=== PATIENT | female | born 1945 | race Caucasian/White ===

== ENCOUNTER → 2017-08-31 10:26 | Outpatient (CLI) | payer MEDICARE, SELFPAY ==
[2017-08-31 11:42] LABS: Add Manual Diff / Slide Review NO; Eosinophils Percent Auto 1.7 % (2-4); Hematocrit 41.6 % (36-46); Lymphocytes Percent Auto 17.4 % (25-40); Mean Corpuscular HGB Conc 33.6 % (30-36); Mean Corpuscular Volume 83.1 fL (80-100); Monocytes Percent Auto 9.6 % (3-14); Neutrophils Absolute Auto 4700 /uL (3000-5900); Neutrophils Percent Auto 70.3 % (50-75); Platelet Count 301 X10^3/uL (150-400); Red Cell Distribution Width 13.8 % (11.6-14.8); White Blood Cell Count 6.7 X10^3/uL (4.5-11.0)
[2017-08-31 12:54] LABS: Alanine Aminotransferase 31 IU/L (9-52); Albumin 4.5 g/dL (3.5-5.0); Albumin Globulin Ratio 1.5 (1.0-2.8); Alkaline Phosphatase 68 U/L (38-126); Aspartate Aminotransferase 27 IU/L (14-36); BUN Creatinine Ratio 11.1 (6-22); Bilirubin Total 0.6 mg/dL (0.2-1.3); Blood Urea Nitrogen 10 mg/dL (7-17); Calcium 9.7 mg/dL (8.4-10.2); Carbon Dioxide 28 mmol/L (22-32); Chloride 104 mmol/L (98-107); Cholesterol 231 mg/dL (140-199); Estimated Glomerular Filt Rate > 60.0 mL/min (>60); Glucose 102 mg/dL (80-110); HDL Cholesterol 97 mg/dL (40-60); HEMOLYSIS < 15 (0-50); LDL Cholesterol Calculated 116 mg/dL (<100); Potassium 4.7 mmol/L (3.4-5.1); Sodium 144 mmol/L (137-145); Total Protein 7.5 g/dL (6.3-8.2); Triglycerides 91 mg/dL (35-150)
== END ==
PROVIDERS: PCP Family Medicine; Visit Provider Family Medicine
DX: R07.9 Chest pain, unspecified (principal)
CPT/HCPCS: 36415; 80053; 80061; 85025

== ENCOUNTER → 2017-09-16 08:03 | Outpatient (CLI) | payer MEDICARE, SELFPAY ==
--- NOTE | 2017-09-16 09:26 | P.PCN_ITS ---
Cardiac Stress Test Report Referral & Results Date Patient Seen: 09/16/17 Time Patient Seen: 09:24 Requesting provider: Ofelia Henley Indication: Chest pain Rest ECG: Unremarkable Procedure Note: Today following both written and verbal informed consent the patient was exercised according to a standard Charan protocol patient went for a total of 6 min 7 sec achieving a maximum heart rate of 147 maximum systolic blood pressure of 206. This is approximately 7.0 METS. Exercise was terminated at this point because of wheezing and dyspnea. Patient was also given Cardiolite through a previously started Hep-Lock IV by the non licensed nuclear plant operator approximately 1 minute prior to the cessation of exercise. Patient had normal heart rate blood pressure response to exercise No dysrhythmias were identified No ST segment changes were noted Patient did experience the sudden onset of severe mid epigastric to perhaps posterior pain that was not pleuritic in nature while in recovery. There were absolutely no ST segment changes and no dysrhythmias. This resolved in less than 30 sec. Uncertain as to etiology Functional aerobic impairment rated 0 on the active scale or would be better than average on the sedentary scale Impression: No evidence of ischemia. Perfusion imaging be reported separately. Please note: Actual ECG tracings can be found in the PACS system.
--- NOTE | 2017-09-19 15:01 | DI.NM.S_ITS ---
DATE OF SERVICE: 09/16/2017 PROCEDURE: Exercise perfusion study. INDICATIONS: Chest pain. RADIOPHARMACEUTICAL: 25.8 mCi technetium-99m Myoview IV was injected at stress and 25.8 mCi technetium-99m Myoview IV was injected at rest. CARDIAC STRESS: Patient underwent exercise perfusion study under the supervision of an attending staff. Patient walked on Charan protocol for 6 minutes 07 seconds and achieved 98% of target heart rate. There was hypertensive blood pressure response. Resting blood pressure 124/70. Peak blood pressure 206/90. The patient had dyspnea and some wheezing. Baseline EKG revealed normal sinus rhythm with some repolarization changes. During stress, there was some non- stressing up-sloping ST depression without any convincing ischemic changes. There were no significant arrhythmias. RAW DATA: There appears to be adequate myocardial uptake. GATED STUDY: Stress LV ejection fraction 95% without any obvious wall motion abnormalities. Resting end-diastolic volume is 61 mL. No transient ischemic dilatation. TID ratio is 0.72, which is within normal limits. Lung/heart ratio is 0.35, which is within normal limits. MYOCARDIAL PERFUSION SCAN: There is normal myocardial perfusion. CONCLUSION: This is a normal myocardial perfusion study. Patient achieved 7 METS of workload. Functional aerobic impairment 0%. Overall, this is a low- risk myocardial perfusion scan. Chelita Ramsey - JENNIFER/jae/ doc#: [id number]/job#: [id number] dd: 09/19/2017 12:33:00 dt: 09/19/2017 14:47:00 DICTATING /COPIES TO: Jessika Leung MD COPIES MNE: LUIS
== END ==
PROVIDERS: PCP Family Medicine; Visit Provider Family Medicine
DX: R07.9 Chest pain, unspecified (principal)
CPT/HCPCS: 78452; 93016; 93017; 93018; A9502

== ENCOUNTER → 2018-09-12 08:39 | Outpatient (CLI) | payer MEDICARE, SELFPAY ==
[2018-09-12 09:07] LABS: Add Manual Diff / Slide Review NO; Basophils Absolute Auto 100 /uL (0-100); Eosinophils Absolute Auto 100 /uL (0-450); Eosinophils Percent Auto 2.1 % (2-4); Hemoglobin 13.3 g/dL (12.0-16.0); Lymphocytes Absolute Auto 1400 /uL (1100-4500); Lymphocytes Percent Auto 28.8 % (25-40); Mean Corpuscular HGB Conc 33.3 % (30-36); Mean Corpuscular Hemoglobin 28.2 PG (26-34); Mean Corpuscular Volume 84.7 fL (80-100); Monocytes Absolute Auto 500 /uL (0-900); Monocytes Percent Auto 9.5 % (3-14); Neutrophils Absolute Auto 2900 /uL (1500-7000); Neutrophils Percent Auto 58.6 % (50-75); Platelet Count 210 X10^3/uL (150-400); Red Blood Cell Count 4.72 X10^6/uL (4.0-5.2); Red Cell Distribution Width 14.1 % (11.6-14.8); White Blood Cell Count 4.9 X10^3/uL (4.5-11.0)
[2018-09-12 09:23] LABS: Cholesterol 232 mg/dL (140-199); HDL Cholesterol 83 mg/dL (40-60); LDL Cholesterol Calculated 127 mg/dL (<100); Triglycerides 109 mg/dL (35-150)
[2018-09-12 10:24] LABS: Thyroid Stimulating Hormone 2.62 uIU/mL (0.47-4.68)
[2018-09-14 12:37] LABS: Alanine Aminotransferase 23 IU/L (9-52); Albumin 4.2 g/dL (3.5-5.0); Albumin Globulin Ratio 1.4 (1.0-2.8); Alkaline Phosphatase 68 U/L (38-126); Aspartate Aminotransferase 30 IU/L (14-36); BUN Creatinine Ratio 13.3 (6-22); Bilirubin Total 0.6 mg/dL (0.2-1.3); Blood Urea Nitrogen 12 mg/dL (7-17); Calcium 9.2 mg/dL (8.4-10.2); Carbon Dioxide 25 mmol/L (22-32); Chloride 108 mmol/L (98-107); Estimated Glomerular Filt Rate > 60.0 mL/min (>60); Globulin 2.9 g/dL (1.7-4.1); Glucose 98 mg/dL (80-110); HEMOLYSIS < 15 (0-50); Potassium 4.1 mmol/L (3.4-5.1); Sodium 142 mmol/L (137-145); Total Protein 7.1 g/dL (6.3-8.2)
== END ==
PROVIDERS: PCP Family Medicine; Visit Provider Family Medicine
DX: E05.90 Thyrotoxicosis, unspecified without thyrotoxic crisis or storm (principal); I10 Essential (primary) hypertension
CPT/HCPCS: 36415; 80053; 80061; 84443; 85025

== ENCOUNTER → 2018-09-28 09:18 | Outpatient (CLI) | payer MEDICARE, SELFPAY ==
--- NOTE | 2018-09-28 | DI.MG.S_ITS ---
BILATERAL DIGITAL SCREENING MAMMOGRAM 3D/2D WITH CAD: 09/28/2018 CLINICAL: Routine screening. Comparison is made to exams dated: 09/01/2011 mammogram, 11/20/2008 mammogram, 11/02/2007 mammogram, and 08/26/2009 mammogram - [facility]. The tissue of both breasts is predominantly fatty. Current study was also evaluated with a Computer Aided Detection (CAD) system. No significant masses, calcifications, or other findings are seen in either breast. There has been no significant interval change. IMPRESSION: NEGATIVE There is no mammographic evidence of malignancy. A 1 year screening mammogram is recommended. This exam was interpreted at Station ID: [id number]. NOTE: For mammograms, a report in lay terms will be sent to the patient. Approximately 15% of breast malignancies will not be visualized mammographically. In the management of a palpable breast mass, a negative mammogram must not discourage biopsy of a clinically suspicious lesion. Electronically Signed By: Chato camarena/henrry:09/29/2018 12:27:30 letter sent: Normal Exam ACR BI-RADS Category 1: Negative 3341F
== END ==
PROVIDERS: PCP Family Medicine; Visit Provider Family Medicine
DX: Z12.31 Encounter for screening mammogram for malignant neoplasm of breast (principal); Z13.820 Encounter for screening for osteoporosis; M81.0 Age-related osteoporosis without current pathological fracture; Z78.0 Asymptomatic menopausal state; Z82.62 Family history of osteoporosis; K92.9 Disease of digestive system, unspecified; Z87.891 Personal history of nicotine dependence
CPT/HCPCS: 77063; 77067; 77080

== ENCOUNTER → 2018-10-11 11:31 | Outpatient (CLI) | payer MEDICARE, SELFPAY ==
[2018-10-11 15:47] LABS: Vitamin D 25 Hydroxy (D3) 94.4 ng/mL (30.0-100.0)
== END ==
PROVIDERS: PCP Family Medicine; Visit Provider Family Medicine
DX: M81.0 Age-related osteoporosis without current pathological fracture (principal)
CPT/HCPCS: 36415; 82306

== ENCOUNTER → 2019-01-04 14:50 | Outpatient (CLI) | payer MEDICARE, SELFPAY ==
--- NOTE | 2019-01-05 15:56 | PM.PFT.1 ---
Pulmonary Function Test Referral & Results Date Patient Seen: 01/04/19 Requesting provider: Ofelia Henley Results: The spirometry demonstrates an FVC of 2.09 L which is 84% of predicted. The FEV1 was measured at 1.67 L which is 89% of predicted. The FEV1/FVC ratio was 80 which is 105% of predicted. Following the administration of bronchodilator there was 10% improvement in FEV1 and a 37% improvement in FEF 25-75%. Lung volumes show an SVC of 2.16 L which is 80% of predicted. The diffusing capacity was measured at 15.72 which is 83% of predicted. No hemoglobin value was provided, so no correction for potential anemia could be made, if appropriate. The maximum voluntary ventilation was reduced Interpretation: This study demonstrates very mild obstructive lung disease based on minimal reduction FEV1 but 10% improvement following bronchodilator There is a minimal reduction in SVC suggesting an element of restrictive lung disease although this could also be considered normal There is also minimal reduction in diffusing capacity unless patient is anemic Clinical correlation suggested
== END ==
PROVIDERS: PCP Family Medicine; Visit Provider Family Medicine
DX: J44.9 Chronic obstructive pulmonary disease, unspecified (principal); R06.02 Shortness of breath
CPT/HCPCS: 94060; 94726; 94729

== ENCOUNTER → 2019-04-05 11:35 | Outpatient (CLI) | payer MEDICARE, SELFPAY ==
--- NOTE | 2019-04-05 11:39 | DI.RAD.S_ITS ---
PROCEDURE: XR WRIST LT MIN 3V INDICATIONS: left wrist pain no injury TECHNIQUE: 4 views of the wrist were acquired. COMPARISON: None. FINDINGS: Bones: No fractures or dislocations. No suspicious bony lesions. First CMC and triscaphe joint degeneration, mild. Soft tissues: No suspicious soft tissue calcifications. IMPRESSION: Mild joint degeneration as above Dictated by: Domenico Linares M.D. on 04/05/2019 at 15:20 Approved by: Domenico Linares M.D. on 04/05/2019 at 15:21
== END ==
PROVIDERS: PCP Family Medicine; Visit Provider Nurse Practitioner Family
DX: M25.532 Pain in left wrist (principal); M19.032 Primary osteoarthritis, left wrist; M18.12 Unilateral primary osteoarthritis of first carpometacarpal joint, left hand
CPT/HCPCS: 73110

== ENCOUNTER → 2023-06-25 11:29 | Outpatient (CLI) | payer MEDICARE, SELFPAY ==
[2023-06-25 12:47] LABS: Add Manual Diff / Slide Review NO; Basophils Absolute Auto 0 /uL (0-100); Basophils Percent Auto 0.6 % (0-2); Eosinophils Absolute Auto 100 /uL (0-450); Eosinophils Percent Auto 1.7 % (2-4); Hematocrit 41.9 % (36-46); Lymphocytes Absolute Auto 1700 /uL (1100-4500); Lymphocytes Percent Auto 22.6 % (25-40); Mean Corpuscular HGB Conc 33.4 % (30-36); Mean Corpuscular Hemoglobin 30.2 PG (26-34); Mean Corpuscular Volume 90.4 fL (80-100); Monocytes Absolute Auto 700 /uL (0-900); Monocytes Percent Auto 9.6 % (3-14); Neutrophils Absolute Auto 4900 /uL (1500-7000); Neutrophils Percent Auto 65.5 % (50-75); Platelet Count 257 X10^3/uL (150-400); Red Blood Cell Count 4.64 X10^6/uL (4.0-5.2); White Blood Cell Count 7.6 X10^3/uL (4.5-11.0)
[2023-06-25 13:05] LABS: Alanine Aminotransferase 15 IU/L (<35); Albumin 4.2 g/dL (3.5-5.0); Albumin Globulin Ratio 1.4 (1.0-2.8); Alkaline Phosphatase 50 U/L (38-126); Aspartate Aminotransferase 26 IU/L (14-36); BUN Creatinine Ratio 17.4 (6-22); Bilirubin Total 0.6 mg/dL (0.2-1.3); Blood Urea Nitrogen 16 mg/dL (7-17); Calcium 9.7 mg/dL (8.4-10.2); Carbon Dioxide 29 mmol/L (22-32); Chloride 110 mmol/L (98-107); Cholesterol 256 mg/dL (140-199); Estimated Glomerular Filt Rate > 60 mL/min (>60); Glucose 102 mg/dL (80-110); HDL Cholesterol 77 mg/dL (40-60); HEMOLYSIS 28 (0-50); LDL Cholesterol Calculated 126 mg/dL (<100); Sodium 143 mmol/L (137-145); Total Protein 7.2 g/dL (6.3-8.2); Triglycerides 267 mg/dL (35-150)
[2023-06-25 13:07] LABS: Potassium 5.5 mmol/L (3.4-5.1)
[2023-06-25 13:33] LABS: TSH w/ Reflex to FT4 0.26 uIU/mL (0.47-4.68)
[2023-06-25 14:03] LABS: Free T4, Direct Thyroxine 1.14 ng/dL (0.78-2.19)
== END ==
LOC: LAB 11:32
PROVIDERS: PCP Family Medicine; Referring Provider Family Medicine; Visit Provider Family Medicine
DX: E05.90 Thyrotoxicosis, unspecified without thyrotoxic crisis or storm (principal); J44.9 Chronic obstructive pulmonary disease, unspecified; I10 Essential (primary) hypertension; N28.9 Disorder of kidney and ureter, unspecified; E78.5 Hyperlipidemia, unspecified; M19.90 Unspecified osteoarthritis, unspecified site
CPT/HCPCS: 36415; 80053; 80061; 84439; 84443; 85025

== ENCOUNTER → 2023-09-14 14:06 | Outpatient (CLI) | payer MEDICARE, SELFPAY ==
--- NOTE | 2023-09-14 14:08 | DI.RAD.S_ITS ---
PROCEDURE: XR DEXA AXIAL SKELETON INDICATIONS: screenning for osteoporosis COMPARISON: [facility], [facility], XR DEXA AXIAL SKELETON, 09/28/2018, 9:59. FINDINGS: Lumbar Spine: Bone mineral density 0.774 g/cm2, T score -2.5. There is interval 3.4% decrease in total lumbar spine bone density. Left Hip: Bone mineral density 0.657 g/cm2, T score -2.3. There is interval 2.2% increase in left total hip bone density. Left Femoral Neck: Bone mineral density 0.605 g/cm2, T score -2.2. There is interval 1.8% increase in left femoral neck bone density. Right Hip: Bone mineral density 0.644 g/cm2, T score -2.4. There is interval 3.7% increase in right total hip bone density. Right Femoral Neck: Bone mineral density 0.560 g/cm2, T score -2.6. There is interval 4.6% increase in left femoral neck bone density. Fracture Risk Calculation (when applicable): 10-year fracture risk of a major osteoporotic fracture 17% and of a hip fracture 5.4%. (T score greater or equal to -1.0 to: NORMAL) (T score from -1.1 to -2.4: OSTEOPENIA) (T score less than or equal to -2.5: OSTEOPOROSIS) IMPRESSION: Osteoporosis with increased 10 year fracture risk. Follow-up guidelines as follows: Osteoporosis: Consider a repeat DEXA and Vertebral Fracture Assessment (VFA) exam in 2 years or sooner if medically necessary, to reassess this patient's status. Osteopenia: Consider a repeat DEXA in 2-3 years to reassess this patient's status, or if there is a new clinical indication. Normal: Consider a repeat DEXA in 5 years or sooner, or if there is a new clinical indication. All treatment decisions require clinical judgment and consideration of individual patient factors, including patient preferences, comorbidities, previous drug use, risk factors not captured in the FRAX model (e.g., frailty, falls, vitamin D deficiency, increased bone turnover, interval significant decline in bone density ) and possible under- or over-estimation of fracture risk by FRAX. In addition, the NOF Guide recommends that FDA-approved medical therapies be considered in postmenopausal women and men age >= 50 years with a: * Hip or vertebral (clinical or morphometric) fracture * T-score of <=-2.5 at the spine or hip * Ten-year fracture probability by FRAX of >= 3% for hip fracture or >=20% for major osteoporotic fracture. People with diagnosed cases of osteoporosis or at high risk for fracture should have regular bone mineral density tests. For patients eligible for Medicare, routine testing is allowed once every 2 years. The testing frequency can be increased to one year for patients who have rapidly progressing disease, those who are receiving or discontinuing medical therapy to restore bone mass, or have additional risk factors. Dictated by: Otis Gayle M.D. on 09/14/2023 at 17:13 Approved by: Otis Gayle M.D. on 09/14/2023 at 17:16
--- NOTE | 2023-09-14 14:08 | DI.MG.S_ITS ---
BILATERAL DIGITAL SCREENING MAMMOGRAM 3D/2D WITH CAD: 09/14/2023 CLINICAL: Routine screening. Comparison is made to exams dated: 09/01/2011 mammogram - [facility], 09/28/2018 mammogram - [facility], and 11/20/2008 mammogram - [facility]. Both breasts are almost entirely fatty (category a/<25% glandular tissue). Current study was also evaluated with a Computer Aided Detection (CAD) system. There is an asymmetry in the left breast middle depth central to the nipple seen on the mediolateral oblique view only. No other significant masses, calcifications, or other findings are seen in either breast. IMPRESSION: INCOMPLETE: NEEDS ADDITIONAL IMAGING EVALUATION The asymmetry in the left breast is indeterminate. Additional views with possible ultrasound are recommended. Based on the Tyrer Cuzick model (a risk assessment model) the patient's lifetime risk is 1.6% and her 10 year risk is 0.0%. According to the ACR, ACS, and NCCN guidelines, an annual breast MRI exam along with mammogram is recommended if the patient's lifetime risk is 20% or greater. This exam was interpreted at Station ID: [id number]. NOTE: For mammograms, a report in lay terms will be sent to the patient. Approximately 15% of breast malignancies will not be visualized mammographically. In the management of a palpable breast mass, a negative mammogram must not discourage biopsy of a clinically suspicious lesion. Electronically Signed By: Justus peralta/henrry:09/15/2023 07:40:52 letter sent: Additional Imaging Needed ACR BI-RADS Category 0: Incomplete 3340F
== END ==
LOC: MAMMO 14:06
PROVIDERS: PCP Family Medicine; Referring Provider Family Medicine; Visit Provider Family Medicine
DX: M81.0 Age-related osteoporosis without current pathological fracture (principal); Z12.31 Encounter for screening mammogram for malignant neoplasm of breast; R92.313 Mammographic fatty tissue density, bilateral breasts; E87.5 Hyperkalemia; E78.5 Hyperlipidemia, unspecified; I10 Essential (primary) hypertension; Z11.59 Encounter for screening for other viral diseases
CPT/HCPCS: 77063; 77067; 77080

== ENCOUNTER → 2023-09-30 13:35 | Outpatient (CLI) | payer MEDICARE, SELFPAY ==
[2023-09-30 14:38] LABS: BUN Creatinine Ratio 20.2 (6-22); Blood Urea Nitrogen 23 mg/dL (7-17); Carbon Dioxide 24 mmol/L (22-32); Chloride 108 mmol/L (98-107); Cholesterol 256 mg/dL (140-199); Estimated Glomerular Filt Rate 50 mL/min (>60); Glucose 100 mg/dL (80-110); HDL Cholesterol 80 mg/dL (40-60); HEMOLYSIS < 15 (0-50); LDL Cholesterol Calculated 135 mg/dL (<100); Potassium 4.1 mmol/L (3.4-5.1); Sodium 139 mmol/L (137-145); Triglycerides 205 mg/dL (35-150)
[2023-09-30 15:14] LABS: TSH w/ Reflex to FT4 0.33 uIU/mL (0.47-4.68)
[2023-09-30 15:40] LABS: Free T4, Direct Thyroxine 0.94 ng/dL (0.78-2.19)
== END ==
LOC: LAB 13:36
PROVIDERS: PCP Family Medicine; Referring Provider Family Medicine; Visit Provider Family Medicine
DX: Z11.59 Encounter for screening for other viral diseases (principal); I10 Essential (primary) hypertension; E87.5 Hyperkalemia; E78.5 Hyperlipidemia, unspecified
CPT/HCPCS: 36415; 80048; 80061; 84439; 84443; 86803

== ENCOUNTER → 2023-10-14 10:04 | Outpatient (CLI) | payer MEDICARE, SELFPAY ==
--- NOTE | 2023-10-14 | DI.MG.S_ITS ---
UNILATERAL LEFT DIGITAL DIAGNOSTIC MAMMOGRAM 3D/2D WITH ADDITIONAL VIEWS: 10/14/2023 CLINICAL: Additional evaluation requested from prior study. Comparison is made to exams dated: 09/14/2023 mammogram and 09/28/2018 mammogram - [facility]. The left breast is almost entirely fatty (category a/<25% glandular tissue). The possible asymmetry in the left breast middle depth central to the nipple seen on the mediolateral oblique view only is not reproduced and presumably represented superimposed breast tissue. No other significant masses or calcifications are seen in the breast. IMPRESSION: NEGATIVE There is no mammographic evidence of malignancy. Return to annual mammogram screening schedule is recommended. Based on the Tyrer Cuzick model (a risk assessment model) the patient's lifetime risk is 1.6% and her 10 year risk is 0.0%. According to the ACR, ACS, and NCCN guidelines, an annual breast MRI exam along with mammogram is recommended if the patient's lifetime risk is 20% or greater. This exam was interpreted at Station ID: [id number]. NOTE: For mammograms, a report in lay terms will be sent to the patient. Approximately 15% of breast malignancies will not be visualized mammographically. In the management of a palpable breast mass, a negative mammogram must not discourage biopsy of a clinically suspicious lesion. Electronically Signed By: Omar Ferris M.D. ar/:10/14/2023 21:00:59 letter sent: Normal Exam ACR BI-RADS Category 1: Negative 3341F
== END ==
PROVIDERS: PCP Family Medicine; Referring Provider Family Medicine; Visit Provider Family Medicine
DX: R92.8 Other abnormal and inconclusive findings on diagnostic imaging of breast (principal); N64.89 Other specified disorders of breast; R92.312 Mammographic fatty tissue density, left breast
CPT/HCPCS: 77065; G0279

== ENCOUNTER → 2024-04-25 09:14 | Outpatient (CLI) | payer MEDICARE, SELFPAY ==
[2024-04-25 10:23] LABS: Creatinine Urine Random 333.34 mg/dL
[2024-04-25 10:26] LABS: BUN Creatinine Ratio 19.6 (6-22); Blood Urea Nitrogen 22 mg/dL (7-17); Calcium 9.3 mg/dL (8.4-10.2); Carbon Dioxide 26 mmol/L (22-32); Chloride 107 mmol/L (98-107); Estimated Glomerular Filt Rate 51 mL/min (>60); Glucose 110 mg/dL (80-110); HEMOLYSIS < 15 (0-50); Potassium 4.3 mmol/L (3.4-5.1); Sodium 142 mmol/L (137-145)
[2024-04-25 10:29] LABS: Microalbumin Urine Random 7.6 mg/dL (0-1.6)
== END ==
PROVIDERS: PCP Family Medicine; Referring Provider Family Medicine; Visit Provider Family Medicine
DX: N28.9 Disorder of kidney and ureter, unspecified (principal)
CPT/HCPCS: 36415; 80048; 82043; 82570

== ENCOUNTER → 2025-02-25 15:24 | Outpatient (CLI) | payer MEDICARE, SELFPAY ==
--- NOTE | 2025-02-25 15:25 | DI.RAD.S_ITS ---
PROCEDURE: XR FOOT RT MIN 3V INDICATIONS: screening TECHNIQUE: 3 views of the foot were acquired. COMPARISON: None. FINDINGS: Bones: Oblique fracture through mid to distal 5th metatarsal shaft is seen without significant displacement or angulation. [id number] right foot joint osteoarthritic changes are seen. No suspicious bony lesions. Soft tissues: No tibiotalar joint effusion. Achilles tendon appears normal. IMPRESSION: [id number] right foot joint osteoarthritis. Subtle nondisplaced oblique fracture involving mid to distal 5th metatarsal shaft. No other fracture or dislocation. No suspicious bony lesions. Dictated by: Otis Gayle M.D. on 02/26/2025 at 17:08 Approved by: Otis Gayle M.D. on 02/26/2025 at 17:09
== END ==
PROVIDERS: PCP Family Medicine; Referring Provider Internal Medicine Cardiovascular Disease; Visit Provider Internal Medicine Cardiovascular Disease
DX: S92.354A Nondisplaced fracture of fifth metatarsal bone, right foot, initial encounter for closed fracture (principal); M19.071 Primary osteoarthritis, right ankle and foot; M79.671 Pain in right foot
CPT/HCPCS: 73630